=== PATIENT | male | born 1990 | race Caucasian/White ===

== ENCOUNTER 2020-11-13 16:07 | Outpatient (CLI) | payer OTHER, SELFPAY ==
--- NOTE | ~2020-11-13 | XR_ITS ---
EXAMINATION: XR lumbar spine 2-3V DATE: 11/13/2020 17:18 INDICATION: Groin pain and right-sided neuropathy. TECHNIQUE: Anteroposterior and lateral views of the lumbar spine, and cone-down lateral view of the l umbosacral junction were obtained. COMPARISON: None. FINDINGS: 1-2 mm retrolisthesis L4 on L5 with mild disc height loss. Vertebral body heights and remaining disc heights are normal. 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 Soft tissues are unremarkable with normal bowel gas pattern. IMPRESSION: 1. Mild lower lumbar spondylosis. Reviewed, dictated and finalized at location A.
--- NOTE | ~2020-11-13 | CT_ITS ---
EXAMINATION: CT pelvis wo con EXAM DATE: 11/13/2020 16:40 INDICATION: Right groin pain radiating into right lower abdomen, symptoms one week. TECHNIQUE: Spiral CT pelvis was performed without contrast. Axial, coronal and sagittal images were reviewed. The dose-length product (DLP) for this examination was 283.30 mGy-cm. The exposure was t ailored according to patient size (auto mA exposure control), and iterative reconstruction (ASIR) was used as additional dose reduction technique. There is no prior study for comparison. FINDINGS: No inguinal hernia, lymphadenopathy or other abnormality. Appendix just deep to the right i nguinal canal, appears nonobstructed containing mildly hyperdense material, diameter of 8 mm likely c ongenitally large. No adjacent inflammation or abscess. Prostate and bladder are unremarkable. No pel madison lymphadenopathy. There are small scattered pelvic bone islands. IMPRESSION: Unremarkable CT pelvis exam. Reviewed, dictated and finalized at location A.
== END 2020-11-13 16:08 | disposition home or self-care (01) ==
PROVIDERS: PCP Physician Assistant; Visit Provider Physician Assistant
DX: R10.31 Right lower quadrant pain (principal); M47.816 Spondylosis without myelopathy or radiculopathy, lumbar region
CPT/HCPCS: 72100; 72192

== ENCOUNTER 2020-11-14 11:30 | Emergency (ER) | payer OTHER, SELFPAY ==
[2020-11-14 11:54] VITALS: BP 108/56; PULSE 57; RESP 14; TEMP 36.2; O2SAT 99
[2020-11-14 11:59] LABS: Basophils Absolute Auto 0.1 K/mm3 (0.0-0.1); Basophils Percent Auto 0.5 % (0.2-1.2); Eosinophils Absolute Auto 0.6 K/mm3 (0-0.3); Eosinophils Percent Auto 6.7 % (0-4.4); Hemoglobin 15.5 g/dL (14.0-18.0); Immature Granulocyte Absolute 0.02 K/mm3 (0.00-0.031); Immature Granulocyte Percent A 0.2 % (0-0.5); Lymphocytes Absolute Auto 2.41 K/mm3 (0.9-3.2); Lymphocytes Percent Auto 26.4 % (18.3-44.2); Mean Corpuscular HGB Conc 33.7 g/dl (32-36); Mean Corpuscular Hemoglobin 30.3 pg (26-34); Mean Corpuscular Volume 89.8 fl (80-100); Mean Platelet Volume 9.9 fl (7.4-10.4); Monocytes Absolute Auto 0.8 K/mm3 (0.1-0.6); Monocytes Percent Auto 8.9 % (2.6-8.5); Neutrophils Absolute Auto 5.2 K/mm3 (1.3-6.7); Neutrophils Percent Auto 57.3 % (45.5-73.1); Platelet Count Result 239 k/mm3 (150-375); Red Blood Count 5.12 M/mm3 (4.6-6.20); Red Cell Distribution Width 11.9 % (11.5-14.5); White Blood Count 9.1 K/mm3 (4.5-10.0)
[2020-11-14 12:09] LABS: Alanine Aminotransferase 22 U/L (4-50); Albumin Level 4.6 g/dL (3.5-5.1); Alkaline Phosphatase 46 U/L (38-126); Anion Gap 3 mmol/L (8-16); Aspartate Amino Transferase 26 U/L (17-59); Bilirubin,Total 0.4 mg/dL (0.2-1.3); Blood Urea Nitrogen 13 mg/dL (9-20); Calcium 9.2 mg/dL (8.4-10.2); Carbon Dioxide 32 mmol/L (22-30); Chloride 104 mmol/L (98-107); Estimated CRCL calculation 105 ml/min; Estimated Glomerular Filt Rate > 60; Glucose 93 mg/dL (75-110); Lipase 71 U/L (23-300); Sodium 139 mmol/L (137-145)
[2020-11-14 12:23] LABS: Add Urine Microscopic? YES; Appearance Urine Cloudy (Clear); Bilirubin Urine Negative (Negative); Blood Urine Negative (Negative); Color Urine Yellow (Yellow); Glucose Urine UA Negative (Negative); Ketones Urine Negative (Negative); Leukocyte Esterase Ur Negative LEU/UL (Negative); Nitrate Urine Negative (Negative); Protein Urine 1+ mg/dL (Negative); RBC Urine 0-2 /hpf (0-2); Urobilinogen Urine Negative mg/dL (<2.0); WBC Urine 0-3 /hpf
--- NOTE | 2020-11-14 12:59 | ED.ABDPAIN ---
HPI - Abdominal Pain General Chief Complaint: Abdominal Pain Stated Complaint: abd & groin pain Time Seen by Provider: 11/14/20 11:39 Source: patient Mode of arrival: ambulatory Limitations: no limitations History of Present Illness HPI narrative: 30-year-old male Essentially healthy Presents for evaluation of abdomen and groin pain Symptoms have been present for roughly a week He says that when he is at rest or sitting still he has little discomfort and really only has a lot of pain when he is up and moving around He does not have a fever, and he has no other GI symptoms such as nausea vomiting diarrhea or constipation Additionally he has no symptoms such as dysuria hematuria urinary frequency hematuria or flank pain, no scrotal swelling He was seen yesterday in the primary care office and they obtained lumbar spine x-rays and a pelvis CT scan both of which were effectively normal They recommended that he be evaluated in the emergency department if he was still having symptoms Related Data Allergies Allergy/AdvReac Type Severity Reaction Status Date / Time No Known Allergies Allergy Verified 11/14/20 11:57 Review of Systems Review of Systems: All systems reviewed & are unremarkable except as noted in HPI and below Constitutional: Constitutional: Reports no additional constitutional complaints, Denies chills, Denies fever(s) and Denies headache(s) Eyes: Eyes: Reports no additional eye complaints and Denies change in vision ENT: Denies headache(s) and Denies sore throat Cardiovascular: Cardiovascular: Denies chest pain and Denies dyspnea Gastrointestinal: Gastrointestinal: Reports abdominal pain, Denies constipation, Denies diarrhea, Denies nausea and Denies vomiting Genitourinary: Genitourinary: Denies hematuria, Denies dysuria, Reports testicular pain and Denies urinary frequency Musculoskeletal: Musculoskeletal: Denies deformity, Denies arthralgias, Denies joint swelling and Denies numbness Integumentary/Breasts: Skin/Breast: Denies rash and Denies wounds Neurologic: Denies headache(s), Denies focal weakness and Denies numbness Psychiatric: Psychiatric: Reports no additional psychiatric complaints Endocrine: Endocrine: Reports no additional endocrine complaints Hematologic/Lymphatic: Hematologic/Lymphatic: Reports no additional hematologic/lymphatic complaints Allergic/Immunologic: Allergic/Immunologic: Reports no additional allergic/immunologic complaints Exam Const: General: cooperative, no acute distress and alert Orientation/consciousness: patient oriented x3 (alert) HENMT: Head: normal to inspection, normocephalic and atraumatic Ears: external ears normal General nose exam: no epistaxis Eyes: Conjunctivae: conjunctivae normal EOM: EOMs intact bilaterally Neck: Neck: normal visual inspection, supple and no JVD Resp: Effort & Inspection: normal respiratory effort and not labored Auscultation: other (BS =) GI: Inspection: non-distended GI Palp: Yes Soft to palpation, No Tenderness to palpation present (GI), No Guarding due to palpation present (GI) and No Rebound tenderness present Other: There is no inguinal hernia : General: Yes no CVA tenderness Testes: Testes normal, no testicular swelling and no testicular tenderness Other: Normal prostate Back/Spine/Pelvis: Other: Nontender Skin: General skin exam: normal color and no rashes or lesions noted Neuro: General: patient oriented x3 (alert) and moves all extremities Speech: normal speech Extrem: General: normal to inspection and no pedal edema Other: He is very tender at the insertion of the hip adductors to the pelvis which reproduces his symptoms, additionally internal rotation of the flexed hip versus resistance is painful and likewise reproduces the symptoms Psych: Affect: normal affect Course Course Emergency Course: Patient seems to very clearly have reproducible musculoskeletal pain, on discussion he does not real
[2020-11-14 13:19] VITALS: BP 112/68; PULSE 90; RESP 14; O2SAT 97
== END 2020-11-14 13:26 | disposition home or self-care (01) ==
PROVIDERS: Emergency Provider Emergency Medicine; PCP Physician Assistant
DX: M25.552 Pain in left hip (principal); M25.551 Pain in right hip
CPT/HCPCS: 36415; 80053; 81001; 83690; 85025; 99283